=== PATIENT | female | born 1955 | race Caucasian/White ===

== ENCOUNTER 2023-04-11 12:13 | Emergency (ER) | payer MEDICARE, SELFPAY ==
[2023-04-11 12:20] VITALS: BP 137/72
[2023-04-11 12:46] VITALS: BMI 25.8
[2023-04-11 13:00] VITALS: BP 116/66
--- NOTE | 2023-04-11 13:02 | ED.GENMED ---
History of Present Illness
General
Chief Complaint: Abdominal Symptoms
Source: patient
Exam Limitations: none
Time Seen by Provider: 04/11/23 12:41
Nursing documentation reviewed up to this point in time: agreed with
Travel History
Have you had any contact with someone who has COVID-19?: No
Do you have any symptoms of coronavirus? Fever > 100 degrees, chills, cough, shortness of breath, sore throat, loss of taste or smell, muscle aches, or headache?: No
History of Present Illness
History of Present Illness:
67-year-old female with past medical history of stroke presents to the ER for evaluation. Patient reports at 11:30 AM this morning she was at work(works as a food service cashier) felt nauseous and then vomited. Patient noted some discomfort in her left arm
but was unsure if she injured anything by lifting food items. Patient also notices some pain in her left upper back. She reports the nausea resolved . She only has very discomfort in her arm and back. She has no associated shortness of breath.
she denies any recent viral syndrome. Denies any fever or chills.
Patient is on aspirin only. She smokes.
Past History
Past History
ED Past Medical History: Psychiatric (Anxiety/depression)
ED Past Surgical History: Gynecological (Hysterectomy) and Other (Breast implants)
Social History
Tobacco: Smoker
Alcohol: Occasional
Drug: None
Personal:
Living: with family
Review of Systems
Review of Systems
Allergies reviewed?: Yes
All Other Systems: ROS reviewed and negative except as documented in HPI and ROS
Constitutional: Reports no symptoms
Respiratory: Denies trouble breathing
Cardiac: Denies chest pain, diaphoresis, palpitations or syncope
ABD/GI: Reports nausea and vomiting; Denies diarrhea or constipated
: Reports no symptoms
Musculoskeletal: Reports back pain
Skin: Reports no symptoms
Neurological: Reports no symptoms
Hematologic/Lymphatic: Reports no symptoms
Psychiatric: Reports no symptoms
Phy Exam
General Physical Exam
General Presentation: no apparent distress
General age: appears stated age
General Skin: warm and dry
General Habitus: normal
General Mental: alert
General Hydration: appears well hydrated
Cardiovascular Exam
Cardiovascular Exam: regular rate/rhythm, no murmur and normal peripheral pulses
Pulmonary Exam
Pulmonary Exam: lungs clear and no respiratory distress
Neurological Exam
Neurological Exam: alert and oriented x3
Musculoskeletal Exam
Musculoskeletal Exam: full ROM
Skin Exam
Skin Exam: normal color and warm/dry
Psychiatric Exam
Psychiatric Exam: normal mood/affect
Course
Orders/Labs/Results
Orders:
Orders
04/11/23 13:01
Electrocardiogram (*1) Stat
Reason for Study: Other
Other Reason for Exam: chest pain
Cardiac Monitoring- Treatment ONCE
EKG- Treatment ONCE
IV Insert/Care/Rem.- Treatment PRN
CR Chest - 2 Views Urgent
Comment:
Reason For Exam: cp
04/11/23 13:13
Complete Blood Count/With Diff Urgent
Comprehensive Metabolic Panel Urgent
Troponin I Urgent
04/11/23 16:06
Electrocardiogram (*1) Stat
Reason for Study: Other
Other Reason for Exam: chest pain
EKG- Treatment ONCE
04/11/23 16:10
Troponin I Urgent
Abnormal Lab Results
04/11/23
13:13
Abs Immat Gran (auto) 0.1 H 10^3/uL
(0-0.05)
Immature Gran % 0.6 H %
(0-0.5)
Lymphocytes % 19.6 L %
(20.5-51.1)
Glucose 114 H mg/dl
(70-99)
04/11/23 13:13
04/11/23 13:13
Vital Signs
Initial and Last Documented VS:
Initial Vital Signs
Temp Pulse Resp BP Pulse Ox
97.9 F 71 18 137/72 97
04/11/23 12:20 04/11/23 12:20 04/11/23 12:20 04/11/23 12:20 04/11/23 12:20
Last Documented Vital Signs
Temp Pulse Resp BP Pulse Ox
97.9 F 63 13 122/61 98
04/11/23 12:20 04/11/23 16:51 04/11/23 16:51 04/11/23 16:51 04/11/23 16:43
MDM/Problems Addressed
Differential Diagnosis Includes:
Not limited to viral syndrome muscular pain less likely ACS, less likely dissection
MDM/Problems Addressed:
Patient is a 67-year-old female who was working at [employer] as a food service cashier became nauseous vomited. She then noted she had some left arm pain and back pain which the prompted her to come to the ER. She is no cardiac history. On arrival nausea
resolved. Patient presented well-appearing in no acute distress she presented comfortable. She presented with stable vital signs denies any recent injury fever chills. She does report however she does a lot of lifting with food.
She presents afebrile with a normal white count stable chemistries negative cardiac troponin no acute findings on EKG
Patient was monitored here continues to look very well back pain arm pain resolved on its own. Patient had repeat cardiac troponin which is also negative and repeat unchanged EKG. She has remained asymptomatic.
Patient has had no complaints of shortness of breath is nontachycardic nontachypneic lungs are clear. X-ray negative.
No concerning cause for patient's symptoms she is well-appearing discussed close outpatient follow-up and to return if any worsening of symptoms
*EKG
Interpreted by ED Provider?: Yes
Interpretation: normal
Comparison EKG: no comparison EKG present
Heart Rate: 68
*Critical Care Note
Total Time (30-74mins, 75-104mins- exclusive of procedures): Not Applicable
ED Attending Note
-
Portions of this chart may have been created with voice recognition software.� Occasional wrong word or��sound alike� substitutions may have occurred due to the inherent limitations of voice recognition software.
Discharge Plan
Departure
Patient Disposition: Home (Routine Discharge)
Date of Disposition: 04/11/23
Time of Disposition: 16:51
Patient with high blood pressure during this ER visit?: No
Covid-19: Not Applicable
Discharge Problem:
nausea and vomiting
Instructions: Nausea and Vomiting, Adult (DC)
Prescriptions:
No Action
fluoxetine 40 mg capsule
40 mg PO HS
clonazepam 0.5 mg tablet
0.5 mg PO BIDPRN PRN (Reason: ANXIETY)
nicotine 14 mg/24 hr Patch 24 Hour
14 mg transdermal DAILY Qty: 28 0RF
aspirin 81 mg capsule
81 mg PO DAILY Qty: 30 0RF
Referrals:
Skyler Lin DO [Family Provider] -
Activity Restrictions/Additional Instructions:
You were seen in the ER today for an episode of nausea and vomiting with some left arm pain and back pain. As discussed your EKG and cardiac labs are unremarkable your labs are unremarkable and your chest x-ray was negative. Follow-up with your
family doctor the next several days for reevaluation return if any worsening of symptoms including any recurrence of pain chest pain shortness of breath or any further concerns.
Interventions
Interventions:
*Risk Screen - Suicide Last Done: 04/11/23 12:20
*General Assessment Last Done: 04/11/23 12:20
*Neglect/Abuse Screening Last Done: 04/11/23 12:20
*ED COVID-19 Vaccine History Last Done: 04/11/23 12:20
*Nursing Disposition Last Done: 04/11/23 16:59
RU-Imennm-Iufeagrtdd Assessment Last Done: 04/11/23 15:15
Discharge Date and Time
Discharge Date/Time: 04/11/23 17:04
[2023-04-11 13:27] LABS: % Basophils 0.5 % (0-2); % Eosinophils 0.8 % (0-6); % Immature Granulocytes 0.6 % (0-0.5); % Lymphocytes 19.6 % (20.5-51.1); % Monocytes 3.4 % (1.7-9.3); % Neutrophils 75.1 % (42.2-75.2); Absolute Eosinophils 0.1 10^3/uL (0-0.7); Absolute Immature Granulocytes 0.1 10^3/uL (0-0.05); Absolute Lymphocytes 1.7 10^3/uL (1.2-3.4); Absolute Monocytes 0.3 10^3/uL (0.1-0.6); Absolute Neutrophils 6.4 10^3/uL (1.4-6.5); Hematocrit 39.6 % (37.0-47.0); Hemoglobin 14.1 g/dL (12.0-16.0); Mean Corp Hgb Conc. 35.6 g/dL (33.0-37.0); Mean Corpuscular Hgb 30.7 pg (27.0-31.0); Mean Corpuscular Volume 86.1 fL (81.0-99.0); Mean Platelet Volume 10.3 fL (7.4-10.4); Nucleated Red Blood Cells % 0 %; Platelet Count 198 10^3/uL (130-400); Red Cell Dist. Width 13.9 % (11.5-14.5); White Blood Cell Count 8.5 10^3/uL (4.8-10.8)
[2023-04-11 13:42] LABS: ALT (SGPT) 27 U/L (0-35); AST (SGOT) 27 U/L (14-36); Albumin 4.4 g/dl (3.5-5.0); Alkaline Phosphatase 103 U/L (38-126); Blood Urea Nitrogen 14 mg/dl (7-17); Calcium 9.6 mg/dl (8.4-10.2); Carbon Dioxide 22 mmol/L (22-30); Chloride 105 mmol/L (98-107); Estimated Creatinine Clearance 69 ml/min; Glucose 114 mg/dl (70-99); Potassium 3.7 mmol/L (3.5-5.1); Sodium 135 mmol/L (135-145); Total Bilirubin 0.7 mg/dl (0.2-1.3); Total Protein 7.1 g/dl (6.3-8.2); eGFR > 60.00
[2023-04-11 13:55] LABS: Troponin I < 0.012 ng/ml
[2023-04-11 14:00] VITALS: BP 113/71
[2023-04-11 15:00] VITALS: BP 109/74
[2023-04-11 16:43] LABS: Troponin I < 0.012 ng/ml
[2023-04-11 16:51] VITALS: BP 122/61
== END 2023-04-11 17:04 | disposition home or self-care (01) ==
LOC: EMR 12:13
PROVIDERS: Nurse Practitioner; EMERGENCY PHYSICIAN Student in an Organized Health Care Education/Training Program; FAMILY PHYSICIAN Family Medicine
DX: R11.2 Nausea with vomiting, unspecified (principal); M79.602 Pain in left arm; M54.6 Pain in thoracic spine; F32.A Depression, unspecified; F41.9 Anxiety disorder, unspecified; I69.312 Visuospatial deficit and spatial neglect following cerebral infarction; M19.90 Unspecified osteoarthritis, unspecified site; F41.0 Panic disorder [episodic paroxysmal anxiety]; F17.200 Nicotine dependence, unspecified, uncomplicated; Z86.16 Personal history of COVID-19; Z79.82 Long term (current) use of aspirin; Z88.1 Allergy status to other antibiotic agents
CPT/HCPCS: 99284; 71046; 80053; 84484; 85025; 93005